=== PATIENT | female | born 1945 | race Caucasian/White ===

== ENCOUNTER 2019-01-13 13:02 | Observation (INO) ==
[2019-01-13] MEDS ORDERED: ASPIRIN 325 MG TABLET PO STA (14:07)
[2019-01-13 14:40] LABS: Basophils # 0.1 10*3/uL (0.0-0.2); Basophils % 0.9 % (0.0-0.8); Eosinophils # 0.3 10*3/uL (0.0-0.87); Eosinophils % 3.7 % (0.00-10.9); Hematocrit 35.9 VOL% (35.7-47.0); Hemoglobin 11.5 GM/DL (12.0-16.0); Immature Granulocytes % 0.3 %; Immature Granulocytes Absolute 0.02 #; Lymphocytes # 2.3 10*3/uL (1.4-4.0); Lymphocytes % 32.6 % (21.3-54.2); Mean Corpuscular Volume 91.3 FL (87-102); Mean Platelet Volume 10.1 FL (9.6-12.0); Monocytes % 9.8 % (1.7-12.7); Neutrophils % 52.7 % (38.7-73.9); Platelet Count 256 T/CUMM (130-400); Red Blood Count 3.93 MC/CUMM (3.8-5.5); White Blood Count 7.1 T/CUMM (4-12)
[2019-01-13 14:51] LABS: INR 1.5; PT Patient Result 15.9 SECS (9.6-12.2)
[2019-01-13 14:52] LABS: Partial Thromboplastin Time 44.3 SECS (20.8-36.0)
[2019-01-13 15:35] LABS: Alanine Aminotransferase 21 U/L (13-56); Albumin 4.1 G/DL (3.4-5.0); Alkaline Phosphatase 42 U/L (45-117); Aspartate Amino Transferase 25 U/L (0-37); Bilirubin,Total < 0.39 MG/DL (0.2-1.0); Blood Urea Nitrogen 12 MG/DL (7-18); Calcium 8.4 MG/DL (8.5-10.1); Estimated Glom Filtration Rate 79 ML/MIN; Glucose 95 MG/DL (74-106); Osmolality,Calculated 282.1 MOS/KG (273-304); Total Protein 6.8 G/DL (6.4-8.3)
[2019-01-13] MEDS ORDERED: BISACODYL 5 MG TABLET PO PRN (16:13)
[2019-01-13] MEDS ORDERED: ONDANSETRON 4 MG/2 ML VIAL IV PRN (16:13)
[2019-01-13] MEDS ORDERED: ALUM/MAG/SIMETH/LIDO VISC 1:1 30 ML BOTTLE PO STA (16:20)
[2019-01-13] MEDS ORDERED: guaiFENesin/DM ER 600-30 MG TABLET PO PRN (16:24)
[2019-01-13] MEDS ORDERED: LEVOFLOXACIN INJ 750 MG in PREMIX 1 EACH IV SCH (16:30)
[2019-01-13] MEDS ORDERED: AZITHROMYCIN INJ 500 MG in SODIUM CHLORIDE 0.9% 250 ML IV SCH (16:30)
[2019-01-13 16:54] LABS: VLDL CHOLESTEROL 50.2 MG/DL
[2019-01-13 16:56] LABS: Risk Ratio 3.13
[2019-01-13 17:05] LABS: Thyroid Stimulating Hormone 0.796 uIU/ml (0.358-3.74)
[2019-01-13] MEDS ORDERED: ONDANSETRON 4 MG TABLET PO PRN (19:09)
[2019-01-13] MEDS ORDERED: oxyCODONE/ACETAMINOPHEN 5-325 MG TABLET PO PRN (19:09)
[2019-01-13] MEDS ORDERED: MORPHINE ER 15 MG TABLET PO PRN (19:09)
[2019-01-13 20:45] LABS: Apearance,Urine CLEAR (Clear); Bilirubin,Urine Negative (Negative); Blood, Urine Negative (Negative); Glucose,Urine (UA) Negative (Negative); Ketones,Urine Negative (Negative); Nitrite,Urine Negative (Negative); Protein,Urine Negative; RBC,Urine 1 /HPF (0-4); Squamous Epithelial Cell,Urine Occasional /HPF (0-10); Urine Color Straw (Yellow); Urine Specific Gravity 1.032 (1.001-1.035); Urine Urobilinogen < 2.0 EU/DL (0.2-1.0); WBC,Urine <1 /HPF (0-6)
[2019-01-13] MEDS ORDERED: traZODone 50 MG TABLET PO SCH (21:00)
[2019-01-13] MEDS ORDERED: GABAPENTIN 300 MG CAPSULE PO SCH (21:00)
[2019-01-13] MEDS ORDERED: SIMVASTATIN 10 MG TABLET PO SCH (21:00)
[2019-01-13] MEDS ORDERED: BACLOFEN 10 MG TABLET PO SCH (21:00)
[2019-01-13] MEDS: DICLOFENAC 1% GEL 100 GM TUBE TOP SCH (21:34)
[2019-01-13] MEDS: DULoxetine 30 MG CAPSULE PO SCH (21:34)
[2019-01-13] MEDS: SODIUM CHLORIDE 0.9% 1,000 ML IV SCH (22:31)
[2019-01-13] MEDS: cycloSPORINE OPH EMUL 1 VIAL BOTH EYES SCH (22:33)
[2019-01-14] MEDS: GABAPENTIN 300 MG CAPSULE PO SCH ×2 (06:36→12:46)
[2019-01-14] MEDS ORDERED: LEVOTHYROXINE 100 MCG TABLET PO SCH (07:00)
[2019-01-14] MEDS ORDERED: LINACLOTIDE 145 MCG CAPSULE PO SCH (07:30)
[2019-01-14] MEDS: cycloSPORINE OPH EMUL 1 VIAL BOTH EYES SCH (08:46)
[2019-01-14] MEDS: DULoxetine 30 MG CAPSULE PO SCH (08:46)
[2019-01-14] MEDS: SODIUM CHLORIDE 0.9% 1,000 ML IV SCH (08:47)
[2019-01-14] MEDS: DICLOFENAC 1% GEL 100 GM TUBE TOP SCH ×2 (08:48→12:47)
[2019-01-14] MEDS ORDERED: FLUTICASONE 50 MCG NASAL SPRAY 16 GM BOTTLE BOTH NARES SCH (09:00)
[2019-01-14] MEDS ORDERED: FESOTERODINE 4 MG PO SCH (09:00)
[2019-01-14] MEDS ORDERED: RIVAROXABAN 20 MG TABLET PO SCH (09:00)
[2019-01-14] MEDS ORDERED: PANTOPRAZOLE 40 MG TABLET PO SCH ×2 (09:00)
[2019-01-14] MEDS ORDERED: MAGNESIUM OXIDE 400 MG TABLET PO SCH (09:00)
[2019-01-14] MEDS ORDERED: CHOLECALCIFEROL 1,000 UNIT TABLET PO SCH (09:00)
[2019-01-14] MEDS ORDERED: POTASSIUM CHLORIDE 8 MEQ CAPSULE PO SCH (09:00)
[2019-01-14 12:09] VITALS: BP 127/69
== END 2019-01-14 17:10 | disposition home or self-care (01) ==
LOC: N.ED 13:02 → N.EDINP 13:02 → N.2W 17:36
PROVIDERS: ADMIT Internal Medicine; ATTEND Internal Medicine